=== PATIENT | male | born 1985 | race Two or more races ===

== ENCOUNTER 2021-11-30 00:06 | Emergency (ER) | payer OTHER ==
[~2021-11-30] VITALS: Ht 172.7 cm; Wt 90.7 kg
[2021-11-30] MEDS ORDERED: PAXIL20 MG (00:19)
[2021-11-30] MEDS ORDERED: PEPCID AC20 MG PO (05:10)
[2021-11-30] MEDS ORDERED: INTESTINEX680 M1 PO (05:10)
[2021-11-30] MEDS ORDERED: ACETAMINOPHEN650 M2 PO (05:10)
== END 2021-11-30 06:03 | disposition home or self-care (01) ==
LOC: ER 00:06
DX: B34.9 Viral infection, unspecified (principal); R19.7 Diarrhea, unspecified; R50.9 Fever, unspecified; Z20.822 Contact with and (suspected) exposure to COVID-19

== ENCOUNTER 2025-01-02 12:55 | Inpatient (IN) | payer OTHER ==
[~2025-01-02] VITALS: Ht 177.8 cm; Wt 90.7 kg
[~2025-01-02 12:55] MED LIST: ACETAMINOPHEN650 M2 PO; INTESTINEX680 M1 PO; PAXIL20 MG; PEPCID AC20 MG PO
[2025-01-02 13:44] LABS: BASO % 0.3 % (0.1-1.2); EOS # 0.00 (0.04-0.54); EOS % 0.0 % (0.7-7.0); LYMPH # 1.89 (1.18-3.74); LYMPH % 7.1 % (19.3-53.1); MEAN PLATELET VOLUME 9.60 fl (9.4-12.4); MONO # 1.95 (0.24-0.82); MONO % 7.4 % (4.7-12.5); NEUT # 22.08 (1.56-6.13); NEUT % 83.5 % (34.0-71.1); RED CELL DISTRIBUTION WIDTH 14.2 % (11.6-14.4)
[2025-01-02 14:15] LABS: ALT/SGPT 31.0 U/L (12-78); AST/SGOT 14.0 U/L (15-37); BILIRUBIN TOTAL 3.81 mg/dL (0.3-1.2); BUN CREA RATIO 9.0 (7.0-25.0); CREATININE SERUM 1.08 mg/dL (0.70-1.30); GFR 75.35; GLOBULINA 4.2 G/DL (2.4-3.5); GLUCOSE FASTING 111.0 mg/dL (65-100); OSMOLALITY SERUM 281.0 MOSM/KG (275-295)
[2025-01-02 14:29] LABS: URINE APPEARANCE Cloudy; URINE BILIRRUBIN Moderate (NEGATIVE); URINE BLOOD Moderate; URINE COLOR Red; URINE GLUCOSE Negative (NEGATIVE); URINE KETONE Negative (NEGATIVE); URINE LEUKOCYTE Moderate; URINE NITRATE Positive; URINE UROBILINOGEN 1.0 E.U./dl
[2025-01-02 14:31] LABS: URINE BACTERIA 23.9 uL (0.0-1933); URINE EPITHELIAL CELLS 104.7 uL (0.0-38.8); URINE RBC 158.1 uL (0.0-20.8); URINE WBC 314.7 uL (0.0-23.2)
[2025-01-02 14:51] LABS: TYPE CELLS SQUAMOUS; URINE CAST 0.73 uL (0.0-1.40); URINE MUCUS MODERATE; URINE PROTEIN 300 (NEGATIVE)
[2025-01-02] MEDS ORDERED: CEFTRIAXONE SODIUM 2,000 MG VIAL IV ONE (15:15)
[2025-01-02] MEDS ORDERED: CEFTRIAXONE SODIUM 2,000 MG VIAL ONE (15:49)
[2025-01-02] MEDS ORDERED: FAMOTIDINE/PF 20 MG in 0.9 % SODIUM CHLORIDE 8 ML IV PUSH ONE (17:00)
[2025-01-02] MEDS ORDERED: 0.9 % SODIUM CHLORIDE 1,000 ML IV SCH ×2 (17:00→18:15)
[2025-01-02] MEDS ORDERED: ACETAMINOPHEN 500 MG GEL..CAP PO ONE ×2 (17:00→19:10)
[2025-01-02] MEDS ORDERED: KETOROLAC TROMETHAMINE 15 MG VIAL IU ONE (18:15)
[2025-01-02] MEDS ORDERED: TAMSULOSIN HCL 0.4 MG CAP PO SCH (18:21)
[2025-01-02] MEDS ORDERED: POTASSIUM BICARBONATE/CIT AC 25 MEQ TABLET.EFF PO ONE (18:30)
[2025-01-02] MEDS ORDERED: ACETAMINOPHEN 500 MG GEL..CAP PO PRN (18:30)
[2025-01-02] MEDS ORDERED: KETOROLAC TROMETHAMINE 30 MG VIAL ONE (19:10)
[2025-01-02] MEDS ORDERED: TAMSULOSIN HCL 0.4 MG CAP PO ONE (19:10)
[2025-01-02] MEDS ORDERED: FAMOTIDINE/PF 20 MG/2 ML VIAL ONE (19:10)
[2025-01-02 19:25] VITALS: BP 120/75
[2025-01-02 19:32] LABS: INR 1.23
[2025-01-02 19:39] VITALS: BP 120/75; O2SAT 96
[2025-01-02 19:44] LABS: COVID-19 AG NEGATIVE (NEGATIVE)
[2025-01-02 21:04] VITALS: BP 109/74; O2SAT 0
[2025-01-03 03:27] VITALS: BP 106/68; O2SAT 95
[2025-01-03] MEDS ORDERED: PAROXETINE HCL 10 MG TABLET PO SCH (09:00)
[2025-01-03] MEDS ORDERED: CEFTRIAXONE SODIUM 2,000 MG in 0.9 % SODIUM CHLORIDE 100 ML IV SCH (09:00)
[2025-01-03] MEDS ORDERED: FAMOTIDINE/PF 20 MG in 0.9 % SODIUM CHLORIDE 8 ML IV PUSH SCH (09:00)
[2025-01-03 09:56] VITALS: BP 112/70; O2SAT 93
[2025-01-03 16:03] VITALS: BP 120/76; O2SAT 94
[2025-01-03] MEDS ORDERED: LACTOBACILLUS ACIDOPHILUS 1 CAP CAP PO SCH (17:00)
[2025-01-03 21:46] LABS: FECAL LEUKOCYTES NEGATIVE (NEGATIVE)
[2025-01-04 03:30] VITALS: BP 105/70; O2SAT 95
[2025-01-04 06:15] LABS: BASO % 0.4 % (0.1-1.2); EOS # 0.15 (0.04-0.54); EOS % 1.3 % (0.7-7.0); LYMPH # 1.46 (1.18-3.74); LYMPH % 12.5 % (19.3-53.1); MEAN PLATELET VOLUME 10.50 fl (9.4-12.4); MONO # 0.92 (0.24-0.82); MONO % 7.8 % (4.7-12.5); NEUT # 9.07 (1.56-6.13); NEUT % 77.4 % (34.0-71.1); RED CELL DISTRIBUTION WIDTH 14.0 % (11.6-14.4)
[2025-01-04 07:06] LABS: ALT/SGPT 37.0 U/L (12-78); AST/SGOT 26.0 U/L (15-37); BILIRUBIN TOTAL 1.59 mg/dL (0.3-1.2); BUN CREA RATIO 13.0 (7.0-25.0); CREATININE SERUM 0.82 mg/dL (0.70-1.30); GFR 103.54; GLOBULINA 3.5 G/DL (2.4-3.5); GLUCOSE FASTING 77.0 mg/dL (65-100); OSMOLALITY SERUM 279.0 MOSM/KG (275-295)
[2025-01-04] MEDS ORDERED: MEROPENEM 500 MG/VIAL VIAL IV STA (08:13)
[2025-01-04 09:20] VITALS: BP 113/68; O2SAT 94
[2025-01-04] MEDS ORDERED: MEROPENEM 500 MG/VIAL VIAL IV SCH (14:00)
[2025-01-04 17:19] VITALS: BP 142/82; O2SAT 98
[2025-01-05 08:12] VITALS: BP 120/77; O2SAT 90
[2025-01-05 12:06] LABS: URINE APPEARANCE Clear; URINE BILIRRUBIN Negative (NEGATIVE); URINE BLOOD Trace; URINE COLOR Yellow; URINE GLUCOSE Negative (NEGATIVE); URINE KETONE Negative (NEGATIVE); URINE LEUKOCYTE Trace; URINE NITRATE Negative; URINE PROTEIN Negative (NEGATIVE); URINE UROBILINOGEN 0.2 E.U./dl
[2025-01-05 12:10] LABS: URINE EPITHELIAL CELLS 3.9 uL (0.0-38.8); URINE RBC 18.3 uL (0.0-20.8); URINE WBC 21.5 uL (0.0-23.2)
[2025-01-05 12:11] LABS: URINE BACTERIA 2.3 uL (0.0-1933); URINE CAST 0.14 uL (0.0-1.40)
[2025-01-05 18:32] VITALS: BP 131/80; O2SAT 98
[2025-01-06 01:29] VITALS: BP 122/70; O2SAT 94
[2025-01-06 08:03] VITALS: BP 113/71; O2SAT 93
[2025-01-06 10:45] LABS: PROSTATIC SPECIFIC ANTIGEN 37.5 NG/ML (0.010-4.00)
[2025-01-06 16:23] VITALS: BP 110/69; O2SAT 97
[2025-01-07 02:00] VITALS: BP 124/70; O2SAT 97
[2025-01-07 09:05] VITALS: BP 115/81; O2SAT 95
[2025-01-07 16:10] VITALS: BP 107/68; O2SAT 95
[2025-01-07 21:09] LABS: BASO % 0.8 % (0.1-1.2); EOS # 0.35 (0.04-0.54); EOS % 3.2 % (0.7-7.0); LYMPH # 4.75 (1.18-3.74); LYMPH % 43.3 % (19.3-53.1); MEAN PLATELET VOLUME 9.80 fl (9.4-12.4); MONO # 0.76 (0.24-0.82); MONO % 6.9 % (4.7-12.5); NEUT # 4.75 (1.56-6.13); NEUT % 43.3 % (34.0-71.1); RED CELL DISTRIBUTION WIDTH 14.2 % (11.6-14.4)
[2025-01-08 02:47] VITALS: BP 104/67; O2SAT 95
[2025-01-08 08:49] VITALS: BP 104/64; O2SAT 95
[2025-01-08 16:13] VITALS: BP 123/77; O2SAT 96
[2025-01-09 02:12] VITALS: BP 119/72; O2SAT 98
[2025-01-09 07:00] VITALS: BP 114/71; O2SAT 95
[2025-01-09] MEDS ORDERED: TAMS0.4C PO (15:00)
[2025-01-09] MEDS ORDERED: INTESTINEX680 M1 PO (15:00)
[2025-01-09 18:01] VITALS: BP 130/67
== END 2025-01-09 18:15 | disposition home or self-care (01) | DRG 690 ==
LOC: ER 12:55 → MEDJ 18:27
PROVIDERS: General Practice; Internal Medicine; Internal Medicine Infectious Disease; Preventive Medicine Public Health & General Preventive Medicine; ADMIT Internal Medicine; ATTEND Internal Medicine
PROC: BW21ZZZ Computerized Tomography (CT Scan) of Abdomen and Pelvis (ICD-10-PCS; 2025-01-02)
PROC: 8E0ZXY6 Isolation (ICD-10-PCS; principal; 2025-01-04)
DX: N39.0 Urinary tract infection, site not specified (principal); Z16.24 Resistance to multiple antibiotics; N41.0 Acute prostatitis; E86.0 Dehydration; E66.9 Obesity, unspecified; B96.20 Unspecified Escherichia coli [E. coli] as the cause of diseases classified elsewhere